=== PATIENT | female | born 1935 | race Hispanic/Latino ===

== ENCOUNTER 2023-07-08 12:21 | Inpatient (IN) | payer OTHER ==
--- OUTSIDE RECORDS SUMMARY | 2023-07-08 12:24 | XMS REPORT | Continuity of Care Document ---
Author Name Unknown Address [address] [facility] [place] [address] [facility] Address [address] [place] [address] Care Team Providers Care Building Carpenter Helper Name Role Phone CHIARA OJEDA Primary Care Physician Unavailab Chiara Fatima L Attending Clinician Unavailable MIRELA MAK Attending Clinician Unavailable Mirela Zarco Attending Clinician [phone] Doctor Unassigned, [place] Attending Clinician U navailable Payers Payer Name Policy Type Policy Number Effective Date Expirati on Date Source [facility] DUAL COMP HMO D SNP [id number] 2021 00:00:00 MEDICA[place] [id number] 2011 00:00:00 Problems Condition Name Condition Details Condition Category Status Onset Date Resolution Date Last Treatment Date Treating Clinician Comments Source Palphaydee n Palpitatio n Disease Active -14 00:00: 00 [facility] Chest pain Chest pain Disease Active -13 00:00: 00 [facility] Obesity (BMI 30-39.9) Obesity (BMI 30-39.9) Disease Active 2015-03 00:00: 00 [facility] Hypertensi on HTN (hypertens ion) Problem [facility] Hyperlipid emia Hyperlipid emia Problem [facility] Dizziness Dizziness Problem [facility] Dementia Dementia in other diseases classified elsewhere without behavioral disturbanc e Problem [facility] Chronic kidney disease stage 3 +5th digit eff 12/30/19*Ch ronic kidney disease, stage 3 Problem [facility] Alzheimer' s disease Alzheimer' 's disease with early onset Problem [facility] [id number] Primary osteoarthr itis of left knee Problem [facility] [id number] Primary insomnia Problem [facility] [id number] Pain, joint, knee, left Problem [facility] Bilateral tinnitus Tinnitus, bilateral Problem [facility] [id number] Tinea corporis Problem [facility] [id number] Pelvic pain Problem [facility] [id number] Anemia due to vitamin B12 deficiency , unspecifie d B12 deficiency type Problem [facility] Anemia Anemia Problem [facility] Allergies, Adverse Reactions, Alerts Allergy Name Allergy Type Status Severity Reaction(s) Onset Date Inactive Date Treating Clinician Comments Source NO KNOWN ALLERGIE S Drug Class Active [facility] Social History Social Habit Start Date Stop Date Quantity Comments Source History of Tobacco Use [facility] Sex Assigned At [facility] Exposure to SARS-CoV-2 (event) 2021-12-03 00:00:00 2021-12-13 17:39:00 Not sure [facility] Alcohol intake 2021-12-13 00:00:00 2021-12-13 00:00:00 Current non-drinker of alcohol (finding) [facility] Tobacco use and exposure 2017-05-13 00:00:00 2017-05-13 00:00:00 Smokeless tobacco non-user [facility] Smoking Status Start Date Stop Date Source Never Smoker [facility] Medications Ordered Medication Name Filled Medication Name Start Date Stop Date Current Medication? Ordering Clinician Indication Dosage Frequency Signature (SIG) Comments Components Source Lidocaine Lidocaine 09-26 00:00: 00 No 5mL [facility] Kenalog (Triamcinol one) Kenalog (Triamcinol one) 09-26 00:00: 00 No 2mL [facility] mupirocin 2 % ointment 12-13 00:00: 00 12-21 04:59 :00 No [id number] Apply to area(s) 3 (three) times daily for 7 days. [facility] acetaminoph en-codeine (TYLENOL-CO DEINE #3) 300-30 mg tablet 11-30 00:00: 00 Yes [id number] 1{tbl} Take 1 tablet by mouth every 4 (four) hours as needed for Pain (scale 1-3). [facility] HYDROcodone -acetaminop hen 5-325 mg tablet 05-27 00:00: 00 Yes [id number] 1{tbl} Take 1 tablet by mouth every 6 (six) hours as needed for Pain (scale 7-10). [facility] lisinopril 20 mg tablet 11-29 19:45: 35 Yes 20mg Take 20 mg by mouth daily. [facility] memantine (NAMENDA XR) 28 mg capsule 11-29 19:45: 35 Yes 28mg Take 28 mg by mouth daily. [facility] dicyclomine (BENTYL) 10 mg capsule 11-29 00:00: 00 Yes 10mg Take 1 capsule by mouth 4 (four) times daily. [facility] docusate sodium 250 mg capsule 11-29 00:00: 00 Yes 250mg Take 1 capsule by mouth daily. [facility] ondansetron 4 mg disintegrat ing tablet 11-29 00:00: 00 Yes 4mg Take 1 tablet by mouth every 4 (four) hours as needed for Nausea and Vomiting (N/V). [facility] Vitamin B12 (Cyanocobal goldsmith) Vitamin B12 (Cyanocobal goldsmith) 09-25 00:00: 00 No 1000ug [facility] Zestoretic Zestoretic 08-28 00:00: 00 Yes Na Ojeda 1 tablet [facility] Nystatin Nystatin 08-28 00:00: 00 10-27 00:00 :00 No Na Ojeda 1 applicatio n to affected area [facility] Restoril Restoril 05-26 00:00: 00 Yes Na Ojeda 1 capsule at bedtime as needed [facility] Restoril 15 MG Restoril 15 MG 05-26 00:00: 00 No 1{capsu le_at_b edtime_ as_need ed} QD Restoril 15 MG Lisinopril Lisinopril Yes Na Ojeda 1 tablet [facility] Amoxicillin Amoxicillin Yes Na Ojeda 1 capsul e [facility] Fish Oil Fish Oil Yes Na Ojeda 1 capsule [facility] Hemocyte Plus Hemocyte Plus Yes Na Ojeda not defined [facility] Ferrous Sulfate Ferrous Sulfate Yes Na Ojeda 1 tablet [facility] Flonase Flonase Yes Na Ojeda 1 spray in each nostril [facility] Aspir-81 Aspir-81 Yes Na Ojeda 1 tablet [facility] Zestoretic 20-12.5 MG Zestoretic 20-12.5 MG No 1{table t} QD Zestoretic 20-12.5 MG Flonase 50 MCG/DOSE Flonase 50 MCG/DOSE No 1{spray _in_eac h_nostr il} QD Flonase 50 MCG/DOSE Donepezil HCl Donepezil HCl No Donepezil HCl Fish Oil 1000 MG Fish Oil 1000 MG No 1{capsu le} QD Fish Oil 1000 MG Lisinopril 20 MG Lisinopril 20 MG No 1{table t} QD Lisinopril 20 MG Ferrous Sulfate 325 (65 Fe) MG Ferrous Sulfate 325 (65 Fe) MG No 1{table t} QD Ferrous Sulfate 325 (65 Fe) MG Amoxicillin 500 MG Amoxicillin 500 MG No 1{capsu le} BID Amoxicilli n 500 MG Nystatin 402366 UNIT/GM Nystatin 340600 UNIT/GM No 1{appli cation_ to_affe cted_ar ea} BID Nystatin 258003 UNIT/GM Namenda XR 28 MG Namenda XR 28 MG No Namenda XR 28 MG Namenda XR Namenda XR 04-29 00:00 :00 No Na Ojeda Daily Common [facility] Vital Signs Vital Name Observation Time Observation Value Comments S ource height 2022-09-26 14:30:00 62.00 [in_i] Com [facility] weight 2022-09-26 14:30:00 162 [lb_av] [facility] temperature 2022-09-26 14:30:00 97.6 [degF] Com [facility] bmi 2022-09-26 14:30:00 29.63 kg/m2 [facility] blood pressure systolic 2022-09-26 14:30:00 138 mm[Hg] [facility] blood pressure diastolic 2022-09-26 14:30:00 88 mm[Hg] [facility] Body weight 2021-12-13 22:40:00 74.844 kg [facility] BMI 2021-12-13 22:40:00 31.18 kg/m2 [facility] Systolic blood pressure 2021-12-13 22:38:00 171 mm[Hg] [facility] Diastolic blood pressure 2021-12-13 22:38:00 71 mm[Hg] [facility] Heart rate 2021-12-13 22:38:00 70 /min [facility] Body temperature 2021-12-13 22:38:00 36.61 Nelda [facility] Respiratory rate 2021-12-13 22:38:00 16 /min [facility] Oxygen saturation in Arterial blood by Pulse oximetry 2021-12-13 22:38:00 99 /min [facility] Procedures Procedure Date / Time Performed Performing Clinician Source CONSENT/REFUSAL FOR DIAGNOSIS AND TREATMENT 2021-12-13 22:31:29 Doctor Unassigned, [place] [facility] INSURANCE CORRESPONDENCE 2021-02-16 06:01:00 Doc tor Unassigned, [place] [facility] Encounters Start Date/Time End Date/Time Encounter Type Admission Type Attending [facility] Care Department Encounter ID Source 2022-09-26 15:39:01 Outpatient [facility] [id number] [facility] 2022-09-19 09:48:00 Outpatient [facility] [id number] [facility] 2022-08-30 09:29:01 Outpatient Chiara OJEDA [facility] [id number] [facility] 2022-08-28 11:37:00 Outpatient Chiara OJEDA [facility] [id number] [facility] 2023-06-04 13:11:54 2023-06-04 13:11:54 Outpatient [facility] [id number] Felix James 2023-03-17 09:24:27 2023-03-17 09:24:27 Outpatient [facility] [id number] Felix Garcia Jacob 2022-09-26 00:00:00 2022-09-26 00:00:00 OFFICE VISIT ESTAB PT LEVEL 3 [facility] [id number] [facility] 2021-12-13 17:42:00 2021-12-13 19:10:00 Emergency X MIRELA MAK [facility] ERT [id number] [facility] 2021-12-13 17:42:00 2021-12-13 19:10:00 Emergency Mirela Mak [facility] [id number] [facility] 2021-02-16 00:00:00 2021-02-16 00:00:00 Orders Only Doctor Unassigned, [place] [facility] [id number] [facility] 2017-09-25 11:15:00 2017-09-25 11:15:00 Outpatient [facility] [id number] [facility] 2017-09-19 10:42:00 2017-09-19 10:42:00 Outpatient [facility] [id number] [facility] 2017-08-28 10:45:00 2017-08-28 10:45:00 Outpatient [facility] [id number] [facility]
[2023-07-08] MEDS ORDERED: ACETAMINOPHEN 325 MG TABLET ONE (12:45)
[2023-07-08 13:15] LABS: Absolute Lymphocytes (CBC) 0.8 K/uL (0.7-4.9); Absolute Monocytes 0.9 K/uL (0.1-1.3); Basophils % 0.2 % (0-1.3); Lymphocytes % 4.6 % (15.3-44.8); MCH 31.4 pg (27.0-35.0); MCHC 33.4 g/dL (32.0-36.0); MCV 94.2 fL (80-100); MPV 10.1 fL (7.6-11.3); Monocytes % 5.3 % (3.3-12.3); Neutrophils % 89.9 % (41.7-73.7); Platelets 221 thou/uL (152-406); RBC Red Blood Cell Count 3.82 M/uL (3.86-4.86); Red Cell Distribution Width 14.4 % (12.1-15.2)
[2023-07-08] MEDS ORDERED: LORazepam 2 MG/ML VIAL ONE (13:16)
[2023-07-08 13:17] LABS: PT Prothrombin Time 13.7 SECONDS (9.5-12.5); PTT, Activated Partial Thromb 30.8 SECONDS (24.3-36.9); Protime INR 1.25
[2023-07-08] MEDS ORDERED: ACETAMINOPHEN 650MG/RECT SUPP PR ONE (13:17)
[2023-07-08 13:29] LABS: Albumin 3.3 g/dL (3.4-5.0); Albumin/Globulin Ratio 0.8 (1.1-1.8); Anion Gap 8.4 mEq/L (5.0-15.0); Bilirubin Total 1.4 mg/dL (0.2-1.0); Globulin 4.3 g/dL (2.3-3.5); Potassium 3.4 mEq/L (3.5-5.1); Protein, Total 7.6 g/dL (6.4-8.2)
--- NOTE | 2023-07-08 13:55 | RAD REPORT ---
EXAM DESCRIPTION: RAD - Chest Single View - 07/08/2023 1:50 pm CLINICAL HISTORY: FEVER Chest pain. COMPARISON: <Comparisons> FINDINGS: Portable technique limits examination quality. Mild interstitial pulmonary edema seen. The heart is mildly enlarged in size with a tortuous thoracic aorta. Significant degenerative change right shoulder. IMPRESSION: Mild CHF.
--- NOTE | 2023-07-08 14:13 | RAD REPORT ---
EXAM DESCRIPTION: CTAbdomen Pelvis W Contrast - 07/08/2023 2:06 pm CLINICAL HISTORY: Abdominal pain. FEVER COMPARISON: <Comparisons> TECHNIQUE: Biphasic CT imaging of the abdomen and pelvis was performed with 100 ml non-ionic IV cont rast. All CT scans are performed using dose optimization technique as appropriate and may include automated exposure control or mA/KV adjustment according to patient size. FINDINGS: Mild linear atelectasis is present in both lung bases. The liver, spleen, pancreas, adrenal glands are within normal limits. There is a large 10 cm benign a ppearing renal cyst on the left. Numerous additional renal cysts are present. Gallbladder is markedly distended, contains a stone and is moderately inflamed compatible with acute cholecystitis. No bowel obstruction, free air, free fluid or abscess. Nonvisualized appendix. Trace pelvic free flu id. Scattered diverticula cysts of the colon. No evidence of significant lymphadenopathy. Small fat and fluid containing left inguinal hernia. No suspicious bony findings. IMPRESSION: Significant gallbladder distension with acute cholecystitis.
[2023-07-08 14:29] LABS: Specific Gravity 1.028 (1.005-1.030); Sqamous Epithelial <5 /HPF (None Seen); Urine Bacteria <20 /HPF (<20); Urine Bilirubin NEGATIVE (Negative); Urine Blood Negative (Negative); Urine Clarity Extremely Turbid (Clear); Urine Color Yellow (Yellow); Urine Crystals Unidentified Few /HPF (None Seen); Urine Culture Reflex Order REFLEXED; Urine Glucose NEGATIVE (Negative); Urine Ketones 1+ (Negative); Urine Microscopic Reflex YN ORDER UMIC; Urine Mucus Slight /HPF (None Seen); Urine Nitrite 2+ (Negative); Urine Protein 1+ (Negative); Urine Urobilinogen 3+ (Normal); Urine Yeast (Budding) Few /HPF (None Seen); Urine pH 6.5 (5.0-7.0)
[2023-07-08 14:47] LABS: White Blood Cell Scan OK (OK)
[2023-07-08 14:48] LABS: Blood Morphology Comment NOT SEEN (NOT SEEN); Platelet Estimate ADEQ
--- NOTE | 2023-07-08 15:04 | EDPHYS ---
Physician Documentation [facility] Name: Tiffany James Age: 87 yrs Sex: Female : 1935 Arrival Date: 07/08/2023 Time: 12:21 Bed 7 Private MD: ED Physician Suhail Lindsay HPI: 07/07 13:18 This 87 yrs old Female presents to ER via EMS with complaints of Fever. kb 13:18 Patient is a 87-year-old female who was sent in for fever that was discovered today. kb EMS reports patient is normally altered but family reported she was a little more altered than normal today. Patient has a history of Alzheimer's and dementia. . Historical: - Allergies: 12:29 No Known Allergies; kc6 - Home Meds: 12: Unable to obtain [Active]; kc6 - PMHx: 12:29 Dementia; Alzheimer's disease; kc6 - PSHx: 12:29 Unable to Obtain; kc6 - Immunization history:: Adult Immunizations unknown. - Infectious Disease History:: Denies. - Social history:: Smoking status: unknown. ROS: 13:18 Constitutional: As per HPI kb Exam: 13:18 Constitutional: This is a well developed, well nourished patient who is awake, alert, kb and in no acute distress. Head/Face: Normocephalic, atraumatic. ENT: Moist Mucous membranes Cardiovascular: Regular rate Respiratory: Respirations even and unlabored. No increased work of breathing. Talking in full sentences Skin: Warm, dry with normal turgor. Normal color. MS/ Extremity: Pulses equal, no cyanosis. Neurovascular intact. Full, normal range of motion. 13:18 Abdomen/GI: Inspection: abdomen appears normal, Bowel sounds: normal, Palpation: soft, in all quadrants, moderate abdominal tenderness, in the right upper quadrant and left upper quadrant, 13:18 Neuro: Exam negative for acute changes, 13:21 ECG was reviewed by the Attending Physician. kb Vital Signs: 12:28 BP 136 / 66; Pulse 108; Resp 19 S; Temp 101.4(A); Pulse Ox 96% on R/A; Weight 61.23 kg kc6 (M); Pain 0/10; 13:50 BP 164 / 94; Pulse 85; Resp 15 S; Pulse Ox 95% on R/A; kc6 15:01 BP 114 / 75; Pulse 77; Resp 15; Temp 97.4; Pulse Ox 96% on R/A; Pain 0/10; ll1 12:28 Pain Scale: Adult kc6 15:01 Pain Scale: Adult ll1 MDM: 12:27 Patient medically screened. kb 13:18 Data reviewed: vital signs, nurses notes. Historians other than the Patient: EMS: [place] [facility]. 15:00 Differential diagnosis: sepsis, cholelithiasis, cholecystitis, uti, pancreatitis. kb Consideration of Admission/Observation Patient was admitted/placed on observation. Escalation of care including admission/observation considered. Management of patient was discussed with the following: Hospitalist: Hospitalist team: pt accepted for admission under Dr Tan. Cashiers Supervisor: Dr Oh accepts pt for consult. Counseling: I had a detailed discussion with the patient and/or guardian regarding the historical points, exam findings, and any diagnostic results supporting the discharge/admit diagnosis, lab results, radiology results, the need for further work-up and treatment in the hospital. 07/07 12:31 Order name: Blood Culture Adult (2) 07/07 12:31 Order name: CBC with Diff; Complete Time: 14:52 07/07 12:31 Order name: CMP; Complete Time: 13:33 07/07 12:31 Order name: Lactate w/ 2H reflex if indic.; Complete Time: 13:33 07/07 12:31 Order name: Protime (+inr); Complete Time: 13:17 07/07 12:31 Order name: Ptt, Activated; Complete Time: 13:17 07/07 12:31 Order name: Urinalysis w/ reflexes; Complete Time: 14:31 07/07 14:34 Order name: Urine Culture EDAL 07/07 14:36 Order name: Lipase 07/07 14:40 Order name: Lipase; Complete Time: 14:52 EDAL 07/07 14:48 Order name: CBC Smear Scan; Complete Time: 14:52 [facility] 07/07 12:31 Order name: Chest Single View XRAY; Complete Time: 13:55 07/07 12:38 Order name: CT Abd/Pelvis - IV Contrast Only; Complete Time: 14:29 07/07 15:24 Order name: CONS Physician Consult EDAL 07/07 12:31 Order name: Accucheck; Complete Time: 13:14 07/07 12:31 Order name: Cardiac monitoring; Complete Time: 12:33 07/07 12:31 Order name: EKG - Nurse/Tech; Complete Time: 13:14 07/07 12:31 Order name: IV Saline Lock - Large Bore; Complete Time: 12:36 07/07 12:31 Order name: Labs collected and sent; Complete Time: 12:54 07/07 12:31 Order name: O2 Per Protocol; Complete Time: 12:33 07/07 12:31 Order name: O2 Sat Monitoring; Complete Time: 12:33 07/07 12:31 Order name: Vital Signs; Complete Time: 12:33 07/07 14:41 Order name: Vital Signs; Complete Time: 15:04 kb EC:21 Rate is 89 beats/min. Rhythm is regular. QRS [place] is Normal. TN interval is normal at kb 178 msec. QRS interval is normal at 86 msec. QT interval is normal at 430 msec. Administered Medications: 13:14 Not Given (Patient Refused): [id number] mg PO once kc6 13:22 Drug: Ativan IVP 0.5 mg IVP once Route: IVP; Site: right antecubital; kc6 13:50 Follow up: Response: No adverse reaction; Anxiety unchanged; RASS: Restless (+1) kc6 13:30 Drug: Acetaminophen TN Suppository 650 mg TN once Route: TN; kc6 15:40 Follow up: Response: No adverse reaction; Temperature is decreased kc6 15:17 Drug: Piperacillin-Tazobactam IVPB 3.375 grams IVPB once over 60 mins; (mix in NS 100 ll1 mL) Route: IVPB; Infused Over: 60 mins; Site: right antecubital; 15:17 Drug: NS 0.9% IV 500 ml IV at bolus once Route: IV; Rate: bolus; Site: right ll1 antecubital; Disposition Summary: 07/08/23 15:03 Hospitalization Ordered Notes: Hospitalization Status: Inpatient Admission kb Provider: Carlitos Tan Location: Telemetry/MedSur (Inpatient) kb Condition: Stable kb Problem: new kb Symptoms: are unchanged kb Bed/Room Type: Standard Room Assignment: 412(07/08/23 15:47) bd Diagnosis - Acute cholecystitis kb - Sepsis, unspecified organism kb Forms: - Medication Reconciliation Form kb - SBAR form kb - Leadership Thank You Letter kb Addendum: 07/14/2023 09:36 I was immediately available for consultation during this patient's visit. I did not e c2 personally see the patient or discuss the patient with the JOSÉ MIGUEL. . Signatures: Dispatcher [employer] EDMS Audra Wakefield, LEAD APPLIER-C LEAD APPLIER-Ckb La Nena Montero Lynsay, RN RN ll1 Agustin Chin, RN RN as6 Scarlett Talavera RN RN kc6 Suhail Lindsay MD MD ec2 Corrections: (The following items were deleted from the chart) 07/07 12:32 12:32 BLOOD CULTURE*+BA.LAB.BRZ ordered. EDMS EDMS 12:32 12:32 CBC+H.LAB.BRZ ordered. EDMS EDMS 12:32 12:32 COMPREHENSIVE METABOLIC PANEL+C.LAB.BRZ ordered. EDMS EDMS 12:32 12:32 LACTATE+C.LAB.BRZ ordered. EDMS EDMS 12:32 12:32 PROTIME (+INR)+COAG.LAB.BRZ ordered. EDMS EDMS 12:32 12:32 PTT, ACTIVATED+COAG.LAB.BRZ ordered. EDMS EDMS 12:32 12:32 Urinalysis+U.LAB.BRZ ordered. EDMS EDMS 12:32 12:32 Chest Single View+RAD.RAD.BRZ ordered. EDMS EDMS 15:47 15:03 kb bd
--- NOTE | 2023-07-08 15:04 | ER ---
[facility] Name: Tiffany James Age: 87 yrs Sex: Female : 1935 Arrival Date: 07/08/2023 Time: 12:21 Bed 7 Private MD: Diagnosis: Acute cholecystitis;Sepsis, unspecified organism Presentation: 07/07 12:28 Chief complaint: EMS states: they were toned out for fever and AMS, pt has a hx of kc6 dementia. temp for EMS was 103 axillary. Coronavirus screen: At this time, the client does not indicate any symptoms associated with coronavirus-19. Ebola Screen: No symptoms or risks identified at this time. Initial Sepsis Screen: Does the patient meet any 2 criteria? Altered Mental Status. HR > 90 bpm. Does the patient have a suspected source of infection? No. Patient's initial sepsis screen is negative. Risk Assessment: Do you want to hurt yourself or someone else? Patient reports no desire to harm self or others. Onset of symptoms was July 08, 2023. 12:28 Method Of Arrival: EMS: [facility] kc6 12:28 Acuity: TED 3 kc6 Triage Assessment: 12:29 General: Appears in no apparent distress. comfortable, well groomed, well developed, kc6 Behavior is calm, cooperative, appropriate for age. Pain: Denies pain. EENT: No signs and/or symptoms were reported regarding the EENT system. Neuro: Level of Consciousness is awake, alert, obeys commands, Oriented to person, Appropriate for age. Cardiovascular: Capillary refill < 3 seconds. Respiratory: Airway is patent Trachea midline Respiratory effort is even, unlabored, Respiratory pattern is regular, symmetrical. GI: No signs and/or symptoms were reported involving the gastrointestinal system. : No signs and/or symptoms were reported regarding the genitourinary system. Derm: No signs and/or symptoms reported regarding the dermatologic system. Skin is intact, is healthy with good turgor, Skin is pink, warm \T\ dry. Musculoskeletal: No signs and/or symptoms reported regarding the musculoskeletal system. Circulation, motion, and sensation intact. Capillary refill < 3 seconds, Range of motion: intact in all extremities. Historical: - Allergies: 12: No Known Allergies; kc6 - Home Meds: 12:29 Unable to obtain [Active]; kc6 - PMHx: 12:29 Dementia; Alzheimer's disease; kc6 - PSHx: 12:29 Unable to Obtain; kc6 - Immunization history:: Adult Immunizations unknown. - Infectious Disease History:: Denies. - Social history:: Smoking status: unknown. Screenin:30 [facility] ED Fall Risk Assessment (Adult) History of falling in the last 3 months, kc6 including since admission No falls in past 3 months (0 pts) Confusion or Disorientation Yes (5 pts) Intoxicated or Sedated No (0 pts) Impaired Gait No (0 pts) Mobility Assist Device Used No (0 pt) Altered Elimination No (0 pt) Score/Fall Risk Level 3 or more points = High Risk. Abuse screen: Denies threats or abuse. Denies injuries from another. Nutritional screening: No deficits noted. Tuberculosis screening: No symptoms or risk factors identified. Assessment: 12:31 Reassessment: please see triage. kc 13:31 Reassessment: Patient appears in no apparent distress at this time. No changes from [facility] previously documented assessment. Patient and/or family updated on plan of care and expected duration. Pain level reassessed. Patient is alert, oriented x 3, equal unlabored respirations, skin warm/dry/pink. 14:31 Reassessment: Patient appears in no apparent distress at this time. No changes from [facility] previously documented assessment. Patient and/or family updated on plan of care and expected duration. Pain level reassessed. 15:04 Reassessment: No changes from previously documented assessment. Patient and/or family ll1 updated on plan of care and expected duration. Pain level reassessed. 15:40 Reassessment: Patient appears in no apparent distress at this time. No changes from 6 previously documented assessment. Patient and/or family updated on plan of care and expected duration. Pain level reassessed. Vital Signs: 12:28 BP 136 / 66; Pulse 108; Resp 19 S; Temp 101.4(A); Pulse Ox 96% on R/A; Weight 61.23 kg kc6 (M); Pain 0/10; 13:50 BP 164 / 94; Pulse 85; Resp 15 S; Pulse Ox 95% on R/A; kc6 15:01 BP 114 / 75; Pulse 77; Resp 15; Temp 97.4; Pulse Ox 96% on R/A; Pain 0/10; ll1 12:28 Pain Scale: Adult kc6 15:01 Pain Scale: Adult ll1 ED Course: 12:22 Patient arrived in ED. kc6 12:27 [facility] Wakefield [facility]C [facility] kb 12:27 Suhail Lindsay MD is Attending Physician. kb 12:29 Triage completed. kc6 12:29 Arm band placed on. kc6 12:30 Patient has correct armband on for positive identification. Bed in low position. Call kc6 light in reach. Side rails up X2. Client placed on continuous cardiac and pulse oximetry monitoring. NIBP monitoring applied. 12:30 Maintain EMS IV. Dressing intact. Good blood return noted. Site clean \T\ dry. Gauge \T\ gilson 6 site: 22F RHAND. 12:55 Inserted saline lock: 22 gauge in right antecubital area, using aseptic technique. ll1 Blood collected. 12:57 Radiology exam delayed due to the nurse is in the room at this time, attempting to give md2 patient medication. 13:44 Scarlett Talavera, LAURA is Primary Nurse. kc6 13:44 Straight cath inserted, using sterile technique, 14 Fr. Specimen obtained. Returned kc6 cloudy urine. Patient tolerated poorly. 13:52 Chest Single View XRAY In Process Unspecified. EDMS 14:07 CT Abd/Pelvis - IV Contrast Only In Process Unspecified. EDMS 15:03 Carlitos Tan MD is Hospitalizing Provider. kb Administered Medications: 13:14 Not Given (Patient Refused): [id number] mg PO once kc6 13:22 Drug: Ativan IVP 0.5 mg IVP once Route: IVP; Site: right antecubital; kc6 13:50 Follow up: Response: No adverse reaction; Anxiety unchanged; RASS: Restless (+1) kc6 13:30 Drug: Acetaminophen AK Suppository 650 mg AK once Route: AK; kc6 15:40 Follow up: Response: No adverse reaction; Temperature is decreased kc6 15:17 Drug: Piperacillin-Tazobactam IVPB 3.375 grams IVPB once over 60 mins; (mix in NS 100 ll1 mL) Route: IVPB; Infused Over: 60 mins; Site: right antecubital; 15:17 Drug: NS 0.9% IV 500 ml IV at bolus once Route: IV; Rate: bolus; Site: right ll1 antecubital; Outcome: 15:03 Decision to Hospitalize by Provider. kb 16:44 Patient left the ED. 1 Signatures: Dispatcher [employer] EDAudra Becerril, DENNY PINA-Ozzy Jewell RN RN ll1 Scarlett Talavera RN RN kc6 Megan Pugh md2
[2023-07-08] MEDS ORDERED: NA CHLORIDE 0.9% 500 ML ONE (15:08)
[2023-07-08] MEDS ORDERED: PIPERACIL/TAZO 3.375 GM VIAL IV ONE (15:09)
[2023-07-08] MEDS ORDERED: ONDANSETRON 4 MG/2 ML VIAL IV PRN (16:09)
[2023-07-08] MEDS ORDERED: MORPHINE 2 MG/ML SYR IV PRN (16:09)
--- NOTE | 2023-07-08 16:42 | P.HP ---
Certification for Inpatient Patient admitted to: Inpatient With expected LOS: >2 Midnights Patient will require the following post-hospital care: None Practitioner: I am a practitioner with admitting privileges, knowledge of patient current condition, hospital course, and medical plan of care. Services: Services provided to patient in accordance with Admission requirements found in Title 42 Section 412.3 of the Code of Federal Regulations Patient History Date of Service: 07/08/23 Reason for admission: Acute cholecystitis, sepsis History of Present Illness: 87-year-old female with history of dementia/Alzheimer's presents the emergency department for chief complaint of altered mental status, fever. Her daughter reports that today when she went to go visit her she noticed that she was more lethargic than normal and hot to the touch, measured her temperature at 101.7. She was evaluated in the emergency department her labs are significant for l eukocytosis white blood cell count of 17.8 lactic acid 2.0 UA nitrite positive with leuk esterase, white cells present she was noted to have abdominal tenderness on exam CT of the abdomen pelvis was performed which revealed suspected acute cholecystitis. General surgeryDr. Oh was consulted patient will be made n.p.o. and started on IV antibiotics. Allergies No Known Drug Allergies Allergy (Verified 01/02/15 07:25) Unknown Home Medications: Aspirin [Aspirin EC] 81 mg PO DAILY 01/02/15 Diphenhydramine [Benadryl Tab/Cap] 25 mg PO BEDTIME PRN PRN 01/02/15 Lisinopril 20 mg PO DAILY 01/02/15 Memantine HCl [Namenda Xr] 7 mg PO DAILY 01/02/15 Simvastatin 20 mg PO DAILY 01/02/15 Temazepam [Restoril] 15 mg PO BEDTIME PRN #15 cap 01/02/15 - Past Medical/Surgical History -: Dementia/Alzheimer's -: None Psychosocial/ Personal History: Lives at home with her - Social History Alcohol use: No CD- Drugs: No Caffeine use: No Place of Residence: Home Review of Systems is unable to be obtained Physical Examination - Physical Exam General: Alert, In no apparent distress, Oriented x2, Confused HEENT: Atraumatic, PERRLA, Mucous membr. moist/pink Neck: Supple, 2+ carotid pulse no bruit, No LAD Respiratory: Clear to auscultation bilaterally, Normal air movement Cardiovascular: Regular rate/rhythm, Normal S1 S2 Gastrointestinal: Normal bowel sounds, Tenderness (Moderate right upper quadrant tenderness) Musculoskeletal: No tenderness Integumentary: No rashes Neurological: Normal speech, Normal strength at 5/5 x4 extr, Normal tone, Normal affect - Studies Laboratory Data (last 24 hrs) 07/08/23 07/08/23 07/08/23 14:36 12:45 12:45 WBC Hgb Hct Plt Count PT 13.7 H INR 1.25 APTT 30.8 Sodium Potassium BUN Creatinine Glucose Total Bilirubin AST ALT Alkaline Phosphatase Lipase Cancelled 12 L 07/08/23 07/08/23 12:45 12:45 WBC 17.80 H Hgb 12.0 Hct 36.0 Plt Count 221 PT INR APTT Sodium 138 Potassium 3.4 L BUN 20 H Creatinine 0.91 Glucose 129 H Total Bilirubin 1.4 H AST 17 ALT 15 Alkaline Phosphatase 97 Lipase Assessment and Plan - Plan Assessment: Sepsis secondary to acute cholecystitis UTI Dementia/Alzheimer's Plan: Sepsis secondary to acute cholecystitis N.p.o., IVF, general surgery consult Lactate is 2.2 does not meet criteria for severe sepsis at this time Blood cultures obtained in ED Continue antibioticsZosyn As needed pain medication/antiemetics Appreciate further input from general surgery UTI Cover empirically with Zosyn Urine culture sent Dementia/Alzheimer's Continue medications once verified DVT PPX: SCDs Code status: Full Discharge Plan: Home Plan to discharge in: Greater than 2 days - Advance Directives Does patient have a Living Will: No Does patient have a Durable POA for Healthcare: No - Code Status/Comfort Care Code Status Assessed: Yes (Full code) Critical Care: No Time Spent Managing Pts Care (In Minutes): 70
[2023-07-08 17:13] VITALS: BMI 24.7
[2023-07-08] MEDS: NA CHLORIDE 0.9% 1,000 ML IV SCH (17:29)
[2023-07-09] MEDS: PIPER TAZO 3.375 GM in NA CHLORIDE 0.9% 100 ML IV SCH (01:09)
[2023-07-09 11:36] LABS: Absolute Lymphocytes (CBC) 1.2 K/uL (0.7-4.9); Absolute Monocytes 1.2 K/uL (0.1-1.3); Absolute Neutrophil 18.5 K/uL (1.8-8.0); Basophils % 0.1 % (0-1.3); Eosinophils % 0.1 % (0-4.4); Hemoglobin 11.5 g/dL (12.0-15.0); Lymphocytes % 5.9 % (15.3-44.8); MCH 30.2 pg (27.0-35.0); MCHC 31.8 g/dL (32.0-36.0); MCV 94.9 fL (80-100); MPV 10.3 fL (7.6-11.3); Monocytes % 5.9 % (3.3-12.3); Platelets 190 thou/uL (152-406); RBC Red Blood Cell Count 3.79 M/uL (3.86-4.86); Red Cell Distribution Width 14.5 % (12.1-15.2)
[2023-07-09 11:57] LABS: Albumin 2.7 g/dL (3.4-5.0); Albumin/Globulin Ratio 0.7 (1.1-1.8); Anion Gap 8.4 mEq/L (5.0-15.0); Bilirubin Total 1.3 mg/dL (0.2-1.0); Globulin 3.8 g/dL (2.3-3.5); Potassium 3.4 mEq/L (3.5-5.1); Protein, Total 6.5 g/dL (6.4-8.2)
[2023-07-09 12:10] LABS: Differential Total Cells Count 100
[2023-07-09 12:11] LABS: Band Neutrophils 8 % (0-1); Lymphocytes 6 % (15-42); Monocytes 6 % (0-10); Segmented Neutrophils 80 % (40-80)
[2023-07-09 12:12] LABS: Blood Morphology Comment NOT SEEN (NOT SEEN); Platelet Estimate ADEQ
--- NOTE | 2023-07-09 12:36 | EKG ---
Test Date: 2023-07-08 Test Time: 12:59:48 Honeycomb Blanket Maker: JOSE MEASUREMENT RESULTS: Intervals: Rate: 89 VA: 178 QRSD: 86 QT: 354 QTc: 430 [place]: P: 45 VA: 178 QRS: 35 T: -16 INTERPRETIVE STATEMENTS: Normal sinus rhythm with sinus arrhythmia Inferior infarct, age undetermined Abnormal ECG Compared to ECG 01/01/2015 21:42:50 Myocardial infarct finding now present Ventricular premature complex(es) no longer present Electronically Signed On 07-09-23 12:33:44 CDT by Paul Martinez
--- NOTE | 2023-07-09 13:18 | P.PN ---
Date of Service: 07/09/23 Subjective: More alert today Less abdominal pain No acute events overnight ROS: 10 point ROS as noted above, otherwise negative Physical exam GEN: Alert, oriented x2 , NAD HEENT: Normal conjunctiva, sclera anicteric CV: Regular rate and rhythm, no edema Pulm: Nonlabored respirations on room air ABD: Soft, mild right upper quadrant abdominal tenderness, nondistended MSK: No joint tenderness Integumentary: No rashes Neuro: Normal speech, normal affect Vitals reviewed Assessment: Sepsis secondary to acute cholecystitis UTI Dementia/Alzheimer's Plan: Sepsis secondary to acute cholecystitis N.p.o., IVF, general surgery consult Lactate is 2.0 does not meet criteria for severe sepsis at this time Blood cultures obtained in ED Continue antibioticsZosyn As needed pain medication/antiemetics General surgery to evaluate today UTI Cover empirically with Zosyn Urine culture sent Dementia/Alzheimer's Continue medications once verified DVT PPX: SCDs Code status: Full Dispo Greater than 2 days Time Spent Managing Pts Care (In Minutes): 35 <Jimmy Myers - Last Filed: 07/09/23 13:18> DOS (07/09/23) Patient seen and examined on rounds this morning with ASSISTANT KITCHEN MANAGER Lucia. I performed a substantial part of the MDM during this patient's care today as noted above in the plan of care. I agree with plan of care as noted above with the following additions / corrections: feeling better, more alert/responsive less tender in abdomen discussed with surgery in afternoon given age, dementia, comorbidities, would recommend continuing medical management; surgery only if fails medical management family updated start clears this afternoon and monitor continue abx <Carlitos Tan - Last Filed: 07/10/23 21:43>
--- NOTE | 2023-07-09 13:40 | P.CNS ---
Date of Consult: 07/09/23 PC: This 87-year-old female presents to the emergency room with fever and being lethargic. HPC: The patient was evaluated in the emergency room. It was found on workup that she has borderline sepsis, with a markedly distended gallbladder showing stones. The patient also has underlying dementia as well as Alzheimer's. PSHx: NAD PMHx: Hypertension Social Hx: No known drug allergies Sys R: Per the family, patient has a rather sedentary life at home. No other specific complaints. O/E: Sleeping at the moment, vital signs are stable HEENT: Not jaundiced Chest: NAD Abd: Tender [place]: Intact Data: Elevated white cell count, CT scan demonstrates a large distended gallbladder with stone Impression: Acute on chronic cholecystitis with cholelithiasis Plan: This patient with dementia, is 87 years old high risk for surgery. In addition she has an acutely inflamed gallbladder. We will treat her with IV antibiotics, analgesics, and hopefully this will resolve her issues. I have discussed this with the family, and the fact that I would prefer a conservative approach as I feel that the surgery itself is truly high risk particularly in his age group with questionable outcome. They understand and are content with this course of treatment.
[2023-07-09] MEDS: ACETAMINOPHEN 500 MG TAB PO PRN (15:14)
[2023-07-09] MEDS: NA CHLORIDE 0.9% 500 ML IV ONE (17:42)
[2023-07-09] MEDS: NA CHLORIDE 0.9% 1,000 ML IV SCH (21:00)
[2023-07-10 10:12] LABS: Absolute Lymphocytes (CBC) 0.6 K/uL (0.7-4.9); Absolute Monocytes 0.6 K/uL (0.1-1.3); Absolute Neutrophil 12.5 K/uL (1.8-8.0); Basophils % 0.1 % (0-1.3); Hematocrit 32.5 % (36.0-45.0); Hemoglobin 10.9 g/dL (12.0-15.0); Lymphocytes % 4.4 % (15.3-44.8); MCH 31.7 pg (27.0-35.0); MCHC 33.4 g/dL (32.0-36.0); MPV 10.7 fL (7.6-11.3); Monocytes % 4.3 % (3.3-12.3); Neutrophils % 91.2 % (41.7-73.7); Platelets 193 thou/uL (152-406); RBC Red Blood Cell Count 3.42 M/uL (3.86-4.86); Red Cell Distribution Width 14.5 % (12.1-15.2)
[2023-07-10 10:30] LABS: Albumin 2.2 g/dL (3.4-5.0); Albumin/Globulin Ratio 0.6 (1.1-1.8); Anion Gap 6.2 mEq/L (5.0-15.0); Bilirubin Total 1.3 mg/dL (0.2-1.0); Globulin 3.9 g/dL (2.3-3.5); Potassium 3.2 mEq/L (3.5-5.1); Protein, Total 6.1 g/dL (6.4-8.2)
--- NOTE | 2023-07-10 10:36 | P.PN ---
Date of Service: 07/10/23 Subjective: More alert today Less abdominal pain No acute events overnight tolerating clear liquids so far ROS: 10 point ROS as noted above, otherwise negative Physical exam GEN: Alert, oriented x2 , NAD HEENT: Normal conjunctiva, sclera anicteric CV: Regular rate and rhythm, no edema Pulm: Nonlabored respirations on room air ABD: Soft, moderate right upper quadrant abdominal tenderness, nondistended MSK: No joint tenderness Integumentary: No rashes Neuro: Normal speech, normal affect Vitals reviewed Assessment: Sepsis secondary to acute cholecystitis UTI Dementia/Alzheimer's Plan: Sepsis secondary to acute cholecystitis Clear liquid diet adat, IVF, antibiotics General surgery evaluated patient-recommends attempting conservative treatment with IV antibiotics as patient is elderly/high risk for surgery Were present on downtrending, patient tolerating clear liquids Blood cultures obtained in ED no growth in 24 hours Continue antibioticsZosyn Serial abdominal exams, monitor for fever, clinical worsening, CBC daily UTI Urine culture with E. coli sensitive to Zosyn, continue Dementia/Alzheimer's Continue medications once verified DVT PPX: SCDs Code status: Full Dispo Greater than 2 days Time Spent Managing Pts Care (In Minutes): 35 <Jimmy Myers - Last Filed: 07/10/23 10:34> Patient seen and examined on rounds this morning with CNC TECHNICIAN Lucia. I performed a substantial part of the MDM during this patient's care today as noted above in the plan of care. I agree with plan of care as noted above with the following additions / corrections: tolerating water not very interested in the rest of clear liquid options. family think she may be more open to less restricted liquids, trial of ensure advance to full liquid diet leukocytosis improved still mild-moderate tender in RUQ urine cx grew e.coli continue zosyn <Carlitos Tan - Last Filed: 07/10/23 21:45>
[2023-07-10] MEDS: POTASSIUM CHLORIDE-0.45% NACL 20 MEQ/1,000 ML BAG IV SCH (12:41)
--- NOTE | 2023-07-10 16:22 | P.PN ---
Date of Service: 07/10/23 S: Patient has no specific complaints, and per the family, has not been complaining of any pain or discomfort today. O: Patient is awake today, looking around, taking interest. Responds to questions. Abdomen is soft, minimal discomfort. A: From a surgical standpoint patient is clinically much improved. P: On clear liquids, will advance as tolerated.
[2023-07-10] MEDS: NA CHLORIDE 0.9% 100 ML ONE (17:44)
[2023-07-10] MEDS ORDERED: ENSURE ENLIVE 237 ML CAN PO SCH (21:00)
[2023-07-10] MEDS: ENSURE HIGH PROTEIN 237 ML CAN PO SCH (21:26)
[2023-07-11 07:05] LABS: Absolute Eosinophils 0.1 K/uL (0-0.5); Absolute Lymphocytes (CBC) 0.8 K/uL (0.7-4.9); Absolute Monocytes 0.6 K/uL (0.1-1.3); Absolute Neutrophil 10.6 K/uL (1.8-8.0); Basophils % 0.1 % (0-1.3); Eosinophils % 0.4 % (0-4.4); Hematocrit 29.7 % (36.0-45.0); Hemoglobin 9.9 g/dL (12.0-15.0); Lymphocytes % 6.9 % (15.3-44.8); MCH 31.5 pg (27.0-35.0); MCHC 33.3 g/dL (32.0-36.0); MCV 94.7 fL (80-100); MPV 10.3 fL (7.6-11.3); Monocytes % 4.9 % (3.3-12.3); Neutrophils % 87.7 % (41.7-73.7); Platelets 181 thou/uL (152-406); RBC Red Blood Cell Count 3.14 M/uL (3.86-4.86); Red Cell Distribution Width 14.9 % (12.1-15.2)
[2023-07-11 07:16] LABS: Albumin/Globulin Ratio 0.6 (1.1-1.8); Anion Gap 6.3 mEq/L (5.0-15.0); Globulin 3.6 g/dL (2.3-3.5); Potassium 3.3 mEq/L (3.5-5.1); Protein, Total 5.6 g/dL (6.4-8.2)
--- NOTE | 2023-07-11 13:19 | P.PN ---
Date of Service: 07/11/23 Subjective: More alert today Seems to be improving Less abdominal pain ROS: 10 point ROS as noted above, otherwise negative Physical exam GEN: Alert, oriented x2 , NAD HEENT: Normal conjunctiva, sclera anicteric CV: Regular rate and rhythm, no edema Pulm: Nonlabored respirations on room air ABD: Soft, moderate right upper quadrant abdominal tenderness, nondistended MSK: No joint tenderness Integumentary: No rashes Neuro: Normal speech, normal affect Vitals reviewed Assessment: Sepsis secondary to acute cholecystitis UTI Dementia/Alzheimer's Plan: Sepsis secondary to acute cholecystitis Clear liquid diet adat, IVF, antibiotics General surgery evaluated patient-recommends attempting conservative treatment with IV antibiotics as patient is elderly/high risk for surgery White blood cell count downtrending, patient tolerating clear liquids Blood cultures obtained in ED no growth in 24 hours Continue antibioticsZosyn Serial abdominal exams, monitor for fever, clinical worsening, CBC daily UTI Urine culture with E. coli sensitive to Zosyn, continue Dementia/Alzheimer's Continue medications once verified DVT PPX: SCDs Code status: Full Dispo Greater than 2 days Time Spent Managing Pts Care (In Minutes): 35
[2023-07-12 05:22] LABS: Absolute Eosinophils 0.1 K/uL (0-0.5); Absolute Lymphocytes (CBC) 0.6 K/uL (0.7-4.9); Absolute Monocytes 0.7 K/uL (0.1-1.3); Absolute Neutrophil 8.3 K/uL (1.8-8.0); Basophils % 0.1 % (0-1.3); Eosinophils % 1.2 % (0-4.4); Hematocrit 29.1 % (36.0-45.0); Hemoglobin 9.9 g/dL (12.0-15.0); Lymphocytes % 6.2 % (15.3-44.8); MCH 32.1 pg (27.0-35.0); MCHC 34.1 g/dL (32.0-36.0); MCV 94.2 fL (80-100); MPV 10.3 fL (7.6-11.3); Monocytes % 6.8 % (3.3-12.3); Neutrophils % 85.7 % (41.7-73.7); Nucleated Red Blood Cells % 0.1 % (0-0); Platelets 180 thou/uL (152-406); RBC Red Blood Cell Count 3.09 M/uL (3.86-4.86); Red Cell Distribution Width 14.7 % (12.1-15.2)
[2023-07-12 05:35] LABS: Albumin 1.8 g/dL (3.4-5.0); Albumin/Globulin Ratio 0.5 (1.1-1.8); Anion Gap 9.4 mEq/L (5.0-15.0); Bilirubin Total 0.9 mg/dL (0.2-1.0); Globulin 3.8 g/dL (2.3-3.5); Potassium 3.4 mEq/L (3.5-5.1); Protein, Total 5.6 g/dL (6.4-8.2)
[2023-07-12] MEDS: POTASSIUM CL SA 10 MEQ TAB PO ONE (08:59)
--- NOTE | 2023-07-12 12:24 | P.PN ---
Date of Service: 07/12/23 Subjective: Steadily improving White blood cell count within normal limits Had temperature of 100.4 last night ROS: 10 point ROS as noted above, otherwise negative Physical exam GEN: Alert, oriented x2 , NAD HEENT: Normal conjunctiva, sclera anicteric CV: Regular rate and rhythm, no edema Pulm: Nonlabored respirations on room air ABD: Soft, moderate right upper quadrant abdominal tenderness, nondistended MSK: No joint tenderness Integumentary: No rashes Neuro: Normal speech, normal affect Vitals reviewed Assessment: Sepsis secondary to acute cholecystitis UTI Dementia/Alzheimer's Plan: Sepsis secondary to acute cholecystitis Diet advanced to heart healthy General surgery evaluated patient-recommends attempting conservative treatment with IV antibiotics as patient is elderly/high risk for surgery White blood cell count within normal limits, had temperature to 100.4 overnight Blood cultures obtained in ED no growth in 24 hours Continue antibioticsZosyn Serial abdominal exams, monitor for fever, clinical worsening, CBC daily PT consult added UTI Urine culture with E. coli sensitive to Zosyn, continue Dementia/Alzheimer's Continue medications once verified DVT PPX: SCDs Code status: Full Dispo Greater than 1-2 days Time Spent Managing Pts Care (In Minutes): 35
[2023-07-13 03:41] LABS: Absolute Eosinophils 0.2 K/uL (0-0.5); Absolute Lymphocytes (CBC) 1.1 K/uL (0.7-4.9); Absolute Neutrophil 9.1 K/uL (1.8-8.0); Basophils % 0.3 % (0-1.3); Eosinophils % 1.5 % (0-4.4); Hematocrit 28.2 % (36.0-45.0); Hemoglobin 9.2 g/dL (12.0-15.0); Lymphocytes % 9.7 % (15.3-44.8); MCHC 32.6 g/dL (32.0-36.0); MCV 95.3 fL (80-100); MPV 10.5 fL (7.6-11.3); Monocytes % 8.9 % (3.3-12.3); Neutrophils % 79.6 % (41.7-73.7); Platelets 197 thou/uL (152-406); RBC Red Blood Cell Count 2.97 M/uL (3.86-4.86); Red Cell Distribution Width 14.6 % (12.1-15.2)
[2023-07-13 03:58] LABS: Anion Gap 9.4 mEq/L (5.0-15.0); Bilirubin Total 0.8 mg/dL (0.2-1.0); Potassium 3.4 mEq/L (3.5-5.1)
[2023-07-13 03:59] LABS: Albumin 1.8 g/dL (3.4-5.0); Albumin/Globulin Ratio 0.5 (1.1-1.8); Globulin 3.9 g/dL (2.3-3.5); Protein, Total 5.7 g/dL (6.4-8.2)
[2023-07-13] MEDS: KCL 20 MEQ/100 mL IVPB 20 MEQ/100 ML BAG IV SCH (05:25)
[2023-07-13] MEDS: NA CHLORIDE 0.9% 250 ML ONE (05:27)
--- NOTE | 2023-07-13 11:31 | P.PN ---
Date of Service: 07/13/23 Subjective: Steadily improving Tolerating diet no more fevers in >36 hours family concerned with OOB status as she walks at home ROS: 10 point ROS as noted above, otherwise negative Physical exam GEN: Alert, oriented x2 , NAD HEENT: Normal conjunctiva, sclera anicteric CV: Regular rate and rhythm, no edema Pulm: Nonlabored respirations on room air ABD: Soft, moderate right upper quadrant abdominal tenderness, nondistended MSK: No joint tenderness Integumentary: No rashes Neuro: Normal speech, normal affect Vitals reviewed Assessment: Sepsis secondary to acute cholecystitis UTI Dementia/Alzheimer's Plan: Sepsis secondary to acute cholecystitis Diet advanced to soft and bite sized as patient has trouble with harder consistency foods General surgery evaluated patient-recommends attempting conservative treatment with IV antibiotics as patient is elderly/high risk for surgery WBC 11, monitor CBC daily No fevers >36 hours Blood cultures obtained in ED no growth Continue antibioticsZosyn Serial abdominal exams, monitor for fever, clinical worsening, CBC daily PT consulted-did not get up with PT yesterday, will try to have pt get up with family/staff today UTI Urine culture with E. coli sensitive to Zosyn, continue Dementia/Alzheimer's Continue medications once verified DVT PPX: SCDs Code status: Full Dispo 1-2 days Time Spent Managing Pts Care (In Minutes): 35
[2023-07-14 06:36] LABS: Hematocrit 27.2 % (36.0-45.0); Hemoglobin 9.3 g/dL (12.0-15.0); MCH 31.9 pg (27.0-35.0); MCHC 34.2 g/dL (32.0-36.0); MCV 93.1 fL (80-100); MPV 9.7 fL (7.6-11.3); Platelets 256 thou/uL (152-406); RBC Red Blood Cell Count 2.92 M/uL (3.86-4.86); Red Cell Distribution Width 14.3 % (12.1-15.2)
[2023-07-14 06:39] LABS: Albumin 1.9 g/dL (3.4-5.0); Albumin/Globulin Ratio 0.5 (1.1-1.8); Anion Gap 7.5 mEq/L (5.0-15.0); Bilirubin Total 0.6 mg/dL (0.2-1.0); Globulin 3.9 g/dL (2.3-3.5); Potassium 3.5 mEq/L (3.5-5.1); Protein, Total 5.8 g/dL (6.4-8.2)
[2023-07-14] MEDS: POTASSIUM 25 MEQ EFFERV TAB PO ONE (10:45)
[2023-07-14] MEDS ORDERED: KCL 20 MEQ/100 mL IVPB 20 MEQ/100 ML BAG IV SCH (11:00)
--- NOTE | 2023-07-14 13:27 | P.PN ---
Date of Service: 07/14/23 Subjective: Steadily improving Tolerating diet No further fevers family concerned with OOB status as she walks at home 07/12 ambulated with walker with assistance, unsteady gait ROS: 10 point ROS as noted above, otherwise negative Physical exam GEN: Alert, oriented x2 , NAD HEENT: Normal conjunctiva, sclera anicteric CV: Regular rate and rhythm, no edema Pulm: Nonlabored respirations on room air ABD: Soft, moderate right upper quadrant abdominal tenderness, nondistended MSK: No joint tenderness Integumentary: No rashes Neuro: Normal speech, normal affect Vitals reviewed Assessment: Sepsis secondary to acute cholecystitis UTI Dementia/Alzheimer's Plan: Sepsis secondary to acute cholecystitis Diet advanced to soft and bite sized as patient has trouble with harder consistency foods General surgery evaluated patient-recommends attempting conservative treatment with IV antibiotics as patient is elderly/high risk for surgery WBC improved, monitor CBC daily No fevers >36 hours Blood cultures obtained in ED no growth Continue antibioticsZosyn Serial abdominal exams, monitor for fever, clinical worsening, CBC daily PT consulted-did not get up with PT yesterday, will try to have pt get up with family/staff today UTI Urine culture with E. coli sensitive to Zosyn, continue Dementia/Alzheimer's Continue medications once verified DVT PPX: SCDs Code status: Full Dispo 1-2 days Time Spent Managing Pts Care (In Minutes): 35
[2023-07-15 07:06] LABS: Hematocrit 27.9 % (36.0-45.0); Hemoglobin 9.2 g/dL (12.0-15.0); MCH 30.8 pg (27.0-35.0); MCHC 33.1 g/dL (32.0-36.0); MCV 93.1 fL (80-100); MPV 9.4 fL (7.6-11.3); Platelets 307 thou/uL (152-406); Red Cell Distribution Width 14.5 % (12.1-15.2)
[2023-07-15 07:08] LABS: Albumin 1.8 g/dL (3.4-5.0); Albumin/Globulin Ratio 0.5 (1.1-1.8); Anion Gap 7.7 mEq/L (5.0-15.0); Bilirubin Total 0.5 mg/dL (0.2-1.0); Potassium 3.7 mEq/L (3.5-5.1); Protein, Total 5.8 g/dL (6.4-8.2)
[2023-07-15] MEDS: POTASSIUM 25 MEQ EFFERV TAB PO ONE (10:26)
--- NOTE | 2023-07-15 19:57 | P.PN ---
Date of Service: 07/15/23 Subjective: Moaned when conversing with her Otherwise sleeping comfortably ROS: 10 point ROS as noted above, otherwise negative Physical exam GEN: AAOx3, NAD HEENT: Normal conjunctiva, sclera anicteric CV: RRR, S1 S2 present, no edema Pulm: Symmetrical chest wall movement, bilaterally clear on auscultation, on room air ABD: Soft and benign on palpation, nondistended MSK: No joint tenderness Integumentary: No rashes Neuro: Normal speech, normal affect Vitals reviewed Assessment: Sepsis secondary to acute cholecystitis UTI Dementia/Alzheimer's Plan: Sepsis secondary to acute cholecystitis Diet advanced to soft and bite sized as patient has trouble with harder consistency foods General surgery evaluated patient-recommends attempting conservative treatment with IV antibiotics as patient is elderly/high risk for surgery WBC improved, monitor CBC daily afebrile Blood cultures obtained in ED no growth Continue antibioticsZosyn Serial abdominal exams, monitor for fever, clinical worsening, CBC daily PT consulted-did not get up with PT yesterday, will try to have pt get up with family/staff today UTI Urine culture with E. coli sensitive to Zosyn, continue Dementia/Alzheimer's Continue medications once verified DVT PPX: SCDs Code status: Full Dispo halfway
[2023-07-16] MEDS: POTASSIUM 25 MEQ EFFERV TAB PO ONE (11:20)
--- NOTE | 2023-07-16 17:53 | P.PN ---
Date of Service: 07/16/23 Subjective: Resting but arouses easily abdominal pain on palpation ROS: 10 point ROS as noted above, otherwise negative Physical exam GEN: NAD, alert and oriented x2, resting comfortably in bed HEENT: Normal conjunctiva, sclera anicteric, MMM CV: Regular rate and rhythm, S1 S2 present, no edema Pulm: Symmetrical chest wall movement, bilaterally clear on auscultation, on room air ABD: Soft abdomen on palpation, ND, tender MSK: No joint tenderness, 2+ peripheral pulses Integumentary: No rashes Neuro: Normal speech, normal affect Vitals reviewed Assessment: Sepsis secondary to acute cholecystitis UTI Dementia/Alzheimer's Plan: Sepsis secondary to acute cholecystitis -Diet advanced to soft and bite sized as patient has trouble with harder consistency foods -General surgery evaluated patient-recommends attempting conservative treatment with IV antibiotics as patient is elderly/high risk for surgery -WBC improved, monitor CBC daily -afebrile -Blood cultures obtained in ED no growth -Continue antibioticsZosyn - monitor for fever, clinical worsening, CBC daily -PT consulted-did not get up with PT yesterday, will try to have pt get up with family/staff today UTI -Urine culture with E. coli sensitive to Zosyn, continue Dementia/Alzheimer's -Continue medications once verified DVT PPX: SCDs Code status: Full Dispo custodial- pending <Kelli Mcleod - Last Filed: 07/16/23 17:38> Patient seen and examined at with [facility]. Plan of care discussed with H[facility]. Patient is awake and alert and interactive. On examination patient has mild right upper quadrant tenderness. Urine culture grew E. coli. Continue IV Zosyn for acute cholecystitis and UTI. Patient slated for skilled rehab placement. Continue PT. <keya jerome - Last Filed: 07/16/23 18:03>
[2023-07-17 09:38] VITALS: O2SAT 97
--- NOTE | 2023-07-17 12:53 | P.PN ---
Subjective Date of Service: 07/17/23 Chief Complaint: Acute cholecystitis, sepsis Patient is lying comfortably in bed. She has no complaints. She denies any abdominal pain. She has been tolerating oral diet. Physical Examination - Vital Signs Temperature: 97.8 F Blood Pressure: 134/62 Pulse: 66 Respirations: 17 Pulse Ox (%): 97 Assessment And Plan - Plan Physical exam GEN: NAD, alert and oriented x2, resting comfortably in bed HEENT: Sclera anicteric. CV: Regular rate and rhythm, S1 S2 present, no edema Pulm: Symmetrical chest wall movement, bilaterally clear on auscultation, on room air ABD: Soft abdomen on palpation, ND, tender MSK: No joint tenderness, 2+ peripheral pulses Integumentary: No rashes Neuro: Normal speech, normal affect Vitals reviewed Assessment: Sepsis secondary to acute cholecystitis UTI Dementia/Alzheimer's Plan: Sepsis secondary to acute cholecystitis -Sepsis resolved. -Patient is now asymptomatic -She is tolerating diet. -General surgery Dr. Oh recommended medical management as patient is elderly/high risk for surgery. -Patient has responded well to medical management. -Blood cultures obtained in ED no growth -Will transition IV Zosyn to oral ciprofloxacin and Flagyl. -Patient is clinically stable. -Continue PT. UTI -Patient completed antibiotics for UTI. Dementia/Alzheimer's -Continue home medications. DVT PPX: SCDs Code status: Full Dispo alf- pending insurance authorization. Patient is clinically stable for transfer.
[2023-07-17] MEDS: metroNIDAZOLE 500 MG TABLET PO SCH (14:34)
[2023-07-17] MEDS: MEMANTINE HCL 10 MG TABLET PO SCH (20:14)
[2023-07-17] MEDS: DONEPEZIL HCL 5 MG TAB PO SCH (20:14)
[2023-07-17] MEDS: CIPROFLOXACIN HCL 500 MG TAB PO SCH (20:15)
--- NOTE | 2023-07-17 20:57 | RAD REPORT ---
EXAM DESCRIPTION: US - Abdomen Exam Limited - 07/17/2023 8:25 pm CLINICAL HISTORY: Abdominal pain. COMPARISON: CT abdomen July 08 2023 FINDINGS: Examination is limited as the patient was combative and the technologist could not finish the exam so only a few images were obtained Multiple large gallstones are present. The gallbladder is distended. The gallbladder wall appears edematous Assessment of the biliary tree could not performed IMPRESSION: Cholelithiasis with gallbladder distention. Gallbladder wall appears edematous and mildly thickened consistent with cholecystitis
--- NOTE | 2023-07-18 16:38 | P.PN ---
Date of Service: 07/18/23 Subjective: Resting but arouses easily abdominal pain on palpation She is walking 750ft with family, stable for discharge home if family decides against transfer for the Cholecystostomy. ROS: 10 point ROS as noted above, otherwise negative Physical exam GEN: Alert and oriented x 2, no acute distress, conversing with family HEENT: Normal conjunctiva, sclera anicteric, MMM CV: S1 S2 present, regular rate and rhythm, no edema Pulm: Symmetrical chest wall movement, bilaterally clear on auscultation, on room air ABD: Soft and benign on palpation, nondistended, tender MSK: No joint tenderness, 2+ peripheral pulses Integumentary: No rashes Neuro: Normal speech, normal affect Vitals reviewed Assessment: Sepsis secondary to acute cholecystitis UTI Dementia/Alzheimer's Plan: Sepsis secondary to acute cholecystitis -Sepsis resolved. -Patient is now asymptomatic -She is tolerating diet. -General surgery Dr. Oh recommended medical management as patient is elderly/high risk for surgery. -Patient has responded well to medical management. -Ultrasound abdomen reports "Examination is limited as the patient was combative and the technologist could not finish the exam so only a few images were obtained Multiple large gallstones are present. The gallbladder is distended. The gallbladder wall appears edematous. Assessment of the biliary tree could not performed. IMPRESSION: Cholelithiasis with gallbladder distention. Gallbladder wall appears edematous and mildly thickened consistent with cholecystitis." -Discussed with patient's family concerning need for transfer for placement of percutaneous cholecystostomy -Blood cultures obtained in ED no growth -transitioned IV Zosyn to oral ciprofloxacin and Flagyl. -Patient is clinically stable. -Continue PT, ambulating with family 750ft UTI -Patient completed antibiotics for UTI. Dementia/Alzheimer's -Continue home medications. DVT PPX: SCDs Code status: Full Dispo Home or transfer for cholecystostomy placement
--- NOTE | 2023-07-19 14:59 | P.PN ---
Date of Service: 07/19/23 Subjective: Awake and conversing well family Waiting for transfer to [facility] for Cholecystostomy placement ROS: 10 point ROS as noted above, otherwise negative Physical exam GEN: AAO x 2, NAD, conversing with family HEENT: Normal conjunctiva, sclera anicteric, MMM CV: S1 S2 present, RRR, no edema Pulm: Symmetrical chest wall movement, bilaterally clear on auscultation, on room air ABD: Soft and benign on palpation, nondistended, nontender MSK: No joint tenderness, 2+ peripheral pulses Integumentary: No rashes Neuro: Normal speech, normal affect Vitals reviewed Assessment: Sepsis secondary to acute cholecystitis UTI Dementia/Alzheimer's Plan: Sepsis secondary to acute cholecystitis -Sepsis resolved. -Patient is now asymptomatic -She is tolerating diet. -General surgery Dr. Oh recommended medical management as patient is elderly/high risk for surgery. -Has responded medical management, will proceed with percutaneous cholecystostomy at [facility] -Ultrasound abdomen reports "Examination is limited as the patient was combative and the technologist could not finish the exam so only a few images were obtained Multiple large gallstones are present. The gallbladder is distended. The gallbladder wall appears edematous. Assessment of the biliary tree could not performed. IMPRESSION: Cholelithiasis with gallbladder distention. Gallbladder wall appears edematous and mildly thickened consistent with cholecystitis." -Blood cultures obtained in ED no growth -transitioned IV Zosyn to oral ciprofloxacin and Flagyl. -Patient is clinically stable. -Continue PT, ambulating with family 750ft UTI -Patient completed antibiotics for UTI. Dementia/Alzheimer's -Continue home medications. DVT PPX: SCDs Code status: Full Dispo Home after cholecystostomy placement
[2023-07-19 16:53] VITALS: BP 131/62; TEMP 97.6
== END 2023-07-19 16:58 | disposition short-term general hospital (02) | DRG 871 ==
LOC: ER 12:21 → ERHOLD 15:22 → 4TH 15:54
PROVIDERS: ADMIT Hospitalist; ATTEND Internal Medicine
DX: A41.9 Sepsis, unspecified organism (principal); G93.41 Metabolic encephalopathy; E44.0 Moderate protein-calorie malnutrition; N39.0 Urinary tract infection, site not specified; K80.12 Calculus of gallbladder with acute and chronic cholecystitis without obstruction; I10 Essential (primary) hypertension; R65.20 Severe sepsis without septic shock; G30.9 Alzheimer's disease, unspecified; F02.80 Dementia in other diseases classified elsewhere, unspecified severity, without behavioral disturbance, psychotic disturbance, mood disturbance, and anxiety; B96.20 Unspecified Escherichia coli [E. coli] as the cause of diseases classified elsewhere; Z68.24 Body mass index [BMI] 24.0-24.9, adult; Z79.82 Long term (current) use of aspirin; Z79.899 Other long term (current) drug therapy
CPT/HCPCS: 36415; 51702; 71045; 74177; 76705; 80053; 81001; 83605; 83690; 84132; 85025; 85027; 85610; 85730; 87040; 87077; 87086; 87088; 87186; 93005; 96374; 96375; 97116; 97161; 97530; 99285; J2543; J3480; J7030; J7040; J7050; Q9967